=== PATIENT | male | born 1955 | race Caucasian/White ===

== ENCOUNTER 2020-06-02 08:01 | Outpatient (CLI) | payer MEDICARE, SELFPAY ==
--- NOTE | ~2020-06-02 | US_ITS ---
EXAMINATION: US aorta [facility] scrn DATE: 06/02/2020 13:00 CDT INDICATION: Hypertension. Obesity. High cholesterol. History of smoking. TECHNIQUE: Grayscale, color Doppler, and pulsed Doppler images of the aorta and common iliac arteries were obtained. COMPARISON: None. FINDINGS: The proximal aorta measures 2 cm greatest sagittal dimension. The mid aorta measures 2 cm greatest sa gittal dimension. The distal aorta measures 1.8 cm greatest sagittal dimension. The right common inte rnal iliac artery measures 1.2 cm. The left common iliac artery measures 1.2 cm. IMPRESSION: 1. Normal caliber aorta without evidence for abdominal aortic aneurysm. Reviewed, dictated and finalized at location A.
== END 2020-06-02 08:02 | disposition home or self-care (01) ==
DX: Z87.891 Personal history of nicotine dependence (principal)
CPT/HCPCS: 76706